=== PATIENT | female | born 1985 | race Caucasian/White ===

== ENCOUNTER 2024-06-08 05:14 | Inpatient (IN) | payer BC, MEDICAID ==
[~2024-06-08 05:14] MED LIST: Sodium Chloride 0.9% 10 ML Syringe FLUSH PRN
[2024-06-08] MEDS ORDERED: Lactated Ringers 1,000 ML IV SCH ×2 (05:30→21:45)
[2024-06-08] MEDS ORDERED: Oxytocin/0.9 % Sodium Chloride 30 UNIT/500 ML BAG IV SCH (05:45)
[2024-06-08] MEDS: Lactated Ringers 1,000 ML IV SCH (05:50)
[2024-06-08 05:54] LABS: BASOPHILS PERCENT AUTO 0.3 % (0.0-1.0); EOSINOPHILS ABSOLUTE AUTO 0.1 K/mm3 (0.0-0.4); EOSINOPHILS PERCENT AUTO 0.6 % (0.0-6.0); HEMATOCRIT 39.5 % (37.0-47.0); HEMOGLOBIN 13.3 gm/dl (12.0-16.0); IMMATURE GRAN ABSOLUTE AUTO 0.05 K/mm3 (0.00-0.05); IMMATURE GRAN PERCENT AUTO 0.5 % (0.0-0.4); LYMPHOCYTES ABSOLUTE AUTO 2.8 K/mm3 (1.0-4.8); LYMPHOCYTES PERCENT AUTO 29.9 % (24.0-44.0); MEAN CORPUSCULAR HEMOGLOBIN 27.5 pg (28.0-32.0); MEAN CORPUSCULAR HGB CONC 33.7 g/dl (32.0-36.0); MEAN CORPUSCULAR VOLUME 81.6 fl (83.0-99.0); MEAN PLATELET VOLUME 9.9 fl (9.4-12.3); MONOCYTES ABSOLUTE AUTO 0.6 K/mm3 (0.0-0.8); MONOCYTES PERCENT AUTO 6.5 % (0.0-8.0); NEUTROPHILS ABSOLUTE AUTO 5.8 K/mm3 (1.8-7.7); NEUTROPHILS PERCENT AUTO 62.2 % (41.0-71.0); PLATELET COUNT,PLT 317 K/mm3 (150-400); RED BLOOD CELL COUNT 4.84 M/mm3 (4.10-5.30); WHITE BLOOD CELL COUNT,WBC 9.33 K/mm3 (3.9-11.3)
[2024-06-08] MEDS ORDERED: Metoclopramide 10 MG/2 ML SDV IVPUSH ONE (06:30)
[2024-06-08] MEDS ORDERED: Citric Acid/Sodium Citrate Solution 30 ML Cup PO ONE (06:30)
[2024-06-08] MEDS ORDERED: ceFAZolin 2 GM in Sodium Chloride 0.9% 50 ML IV ONE (06:30)
[2024-06-08] MEDS ORDERED: Oxytocin/Lactated Ringers 30 UNIT/500 ML BAG IV SCH (07:00)
[2024-06-08] MEDS ORDERED: Morphine PF 10 MG/10 ML SDV ONE (07:02)
[2024-06-08] MEDS ORDERED: ceFAZolin 2 GM Vial ONE ×2 (07:03→20:03)
[2024-06-08] MEDS ORDERED: ePHEDrine 50 MG/ML SDV ONE (07:05)
[2024-06-08] MEDS ORDERED: Ketorolac 30 MG/ML SDV ONE (07:06)
[2024-06-08] MEDS: Citric Acid/Sodium Citrate Solution 30 ML Cup PO ONE (07:17)
[2024-06-08] MEDS: Metoclopramide 10 MG/2 ML SDV IVPUSH ONE (07:17)
[2024-06-08] MEDS ORDERED: Esmolol 100 MG/10 ML SDV ONE (07:56)
[2024-06-08] MEDS ORDERED: Lactated Ringers 1,000 ML IV ONE ×2 (08:15→19:15)
[2024-06-08] MEDS ORDERED: Ondansetron 4 MG/2 ML SDV IVPUSH PRN ×2 (08:51→21:37)
[2024-06-08] MEDS ORDERED: fentaNYL 100 MCG/2 ML SDV IVPUSH PRN ×2 (08:51→21:37)
[2024-06-08] MEDS ORDERED: diphenhydrAMINE 50 MG/ML SDV IVPUSH PRN ×2 (08:51→14:08)
[2024-06-08] MEDS: Bupivacaine 0.5% 30 ML SDV ONE (10:11)
[2024-06-08] MEDS ORDERED: ePHEDrine 50 MG/ML SDV IVPUSH PRN (14:08)
[2024-06-08] MEDS ORDERED: Naloxone 0.4 MG/ML SDV IVPUSH PRN (14:08)
[2024-06-08] MEDS: Acetaminophen/oxyCODONE 325-5 MG Tab PO PRN (14:21)
[2024-06-08] MEDS: Ketorolac 30 MG/ML SDV IVPUSH SCH (14:21)
[2024-06-08] MEDS: Dextrose 5%-Lactated Ringers 1,000 ML IV SCH (14:26)
[2024-06-08 15:09] LABS: BASOPHILS PERCENT AUTO 0.3 % (0.0-1.0); EOSINOPHILS PERCENT AUTO 0.3 % (0.0-6.0); HEMATOCRIT 27.1 % (37.0-47.0); IMMATURE GRAN ABSOLUTE AUTO 0.04 K/mm3 (0.00-0.05); IMMATURE GRAN PERCENT AUTO 0.4 % (0.0-0.4); LYMPHOCYTES ABSOLUTE AUTO 2.2 K/mm3 (1.0-4.8); LYMPHOCYTES PERCENT AUTO 22.2 % (24.0-44.0); MEAN CORPUSCULAR HEMOGLOBIN 27.7 pg (28.0-32.0); MEAN CORPUSCULAR HGB CONC 33.2 g/dl (32.0-36.0); MEAN CORPUSCULAR VOLUME 83.4 fl (83.0-99.0); MEAN PLATELET VOLUME 9.7 fl (9.4-12.3); MONOCYTES ABSOLUTE AUTO 0.5 K/mm3 (0.0-0.8); MONOCYTES PERCENT AUTO 5.2 % (0.0-8.0); NEUTROPHILS ABSOLUTE AUTO 6.9 K/mm3 (1.8-7.7); NEUTROPHILS PERCENT AUTO 71.6 % (41.0-71.0); RED BLOOD CELL COUNT 3.25 M/mm3 (4.10-5.30); WHITE BLOOD CELL COUNT,WBC 9.69 K/mm3 (3.9-11.3)
[2024-06-08 15:10] LABS: PLATELET COUNT,PLT 206 K/mm3 (150-400)
[2024-06-08] MEDS: fentaNYL 100 MCG/2 ML SDV IVPUSH ONE (15:44)
[2024-06-08] MEDS: Tranexamic Acid 1,000 MG/10 ML Vial IV ONE (16:09)
[2024-06-08 16:23] LABS: INR 1.22; PROTHROMBIN TIME 12.8 SECONDS (9.7-12.0)
[2024-06-08 16:24] LABS: PTT,PARTIAL THROMBOPLSTIN TIME 34.4 SECONDS (21.7-31.4)
[2024-06-08] MEDS: Sodium Chloride 0.9% 10 ML Syringe FLUSH SCH (16:50)
[2024-06-08] MEDS: ceFAZolin 2 GM in Sodium Chloride 0.9% 50 ML IV ONE (16:50)
[2024-06-08] MEDS: ceFAZolin 1 GM Vial IM ONE (16:50)
[2024-06-08] MEDS: Methylergonovine 0.2 MG/1 ML Amp IM PRN (17:31)
[2024-06-08] MEDS ORDERED: Rocuronium 50 MG/5 ML Vial ONE (19:10)
[2024-06-08] MEDS ORDERED: Propofol 200 MG/20 ML SDV ONE (19:10)
[2024-06-08] MEDS ORDERED: Dexamethasone 4 MG/ML 5 ML MDV ONE (19:10)
[2024-06-08] MEDS ORDERED: fentaNYL 100 MCG/2 ML SDV ONE (19:10)
[2024-06-08] MEDS ORDERED: Midazolam 1 MG/ML 2 ML SDV ONE (19:10)
[2024-06-08] MEDS ORDERED: Phenylephrine 1% 10 MG/ML SDV ONE (19:38)
[2024-06-08] MEDS ORDERED: Sodium Chloride 0.9% 100 ML ONE (19:38)
[2024-06-08] MEDS ORDERED: Sugammadex Sodium 200 MG/2 ML VIAL IV ONE (20:07)
[2024-06-08 21:12] LABS: HEMATOCRIT 19.2 % (37.0-47.0); MEAN CORPUSCULAR HGB CONC 32.8 g/dl (32.0-36.0); MEAN CORPUSCULAR VOLUME 85.3 fl (83.0-99.0); MEAN PLATELET VOLUME 9.9 fl (9.4-12.3); PLATELET COUNT,PLT 99 K/mm3 (150-400); RED BLOOD CELL COUNT 2.25 M/mm3 (4.10-5.30); WHITE BLOOD CELL COUNT,WBC 9.47 K/mm3 (3.9-11.3)
[2024-06-08 21:24] LABS: HEMOGLOBIN 6.3 gm/dl (12.0-16.0)
[2024-06-08] MEDS ORDERED: HYDROmorphone 0.5 MG/0.5 ML Syringe IVPUSH PRN (21:37)
[2024-06-08] MEDS ORDERED: Sodium Chloride 0.9% 10 ML Syringe FLUSH PRN (21:37)
[2024-06-09] MEDS: Simethicone 80 MG Tab.Chew PO PRN (04:31)
[2024-06-09 06:33] LABS: BASOPHILS PERCENT AUTO 0.2 % (0.0-1.0); HEMATOCRIT 21.9 % (37.0-47.0); IMMATURE GRAN ABSOLUTE AUTO 0.06 K/mm3 (0.00-0.05); IMMATURE GRAN PERCENT AUTO 0.6 % (0.0-0.4); LYMPHOCYTES ABSOLUTE AUTO 1.6 K/mm3 (1.0-4.8); LYMPHOCYTES PERCENT AUTO 17.2 % (24.0-44.0); MEAN CORPUSCULAR HEMOGLOBIN 27.7 pg (28.0-32.0); MEAN CORPUSCULAR HGB CONC 33.3 g/dl (32.0-36.0); MEAN PLATELET VOLUME 10.7 fl (9.4-12.3); MONOCYTES ABSOLUTE AUTO 0.5 K/mm3 (0.0-0.8); MONOCYTES PERCENT AUTO 4.7 % (0.0-8.0); NEUTROPHILS ABSOLUTE AUTO 7.4 K/mm3 (1.8-7.7); NEUTROPHILS PERCENT AUTO 77.3 % (41.0-71.0); NRBC ABSOLUTE 0.02 (0.00-0.02); NRBC PERCENT 0.2 % (0.0-0.2); PLATELET COUNT,PLT 105 K/mm3 (150-400); RED BLOOD CELL COUNT 2.64 M/mm3 (4.10-5.30); WHITE BLOOD CELL COUNT,WBC 9.53 K/mm3 (3.9-11.3)
[2024-06-09 06:49] LABS: HEMOGLOBIN 7.3 gm/dl (12.0-16.0)
[2024-06-09] MEDS: Ibuprofen 600 MG Tab PO SCH (09:08)
[2024-06-09] MEDS: Sodium Chloride 0.9% 10 ML Syringe FLUSH SCH (11:10)
[2024-06-10] MEDS: Acetaminophen/oxyCODONE 325-5 MG Tab PO PRN (01:08)
[2024-06-10] MEDS: Ibuprofen 600 MG Tab PO SCH (06:05)
[2024-06-10 06:14] LABS: HEMATOCRIT 20.6 % (37.0-47.0); MEAN CORPUSCULAR HEMOGLOBIN 28.9 pg (28.0-32.0); MEAN CORPUSCULAR HGB CONC 33.5 g/dl (32.0-36.0); MEAN PLATELET VOLUME 10.1 fl (9.4-12.3); PLATELET COUNT,PLT 145 K/mm3 (150-400); RED BLOOD CELL COUNT 2.39 M/mm3 (4.10-5.30); WHITE BLOOD CELL COUNT,WBC 10.45 K/mm3 (3.9-11.3)
[2024-06-10 06:18] LABS: HEMOGLOBIN 6.9 gm/dl (12.0-16.0); MEAN CORPUSCULAR VOLUME 86.2 fl (83.0-99.0)
[2024-06-10] MEDS: Sodium Chloride 0.9% 250 ML IV SCH (09:16)
[2024-06-11 05:41] LABS: HEMATOCRIT 22.1 % (37.0-47.0); MEAN CORPUSCULAR HEMOGLOBIN 28.7 pg (28.0-32.0); MEAN CORPUSCULAR HGB CONC 32.6 g/dl (32.0-36.0); MEAN PLATELET VOLUME 10.1 fl (9.4-12.3); NRBC ABSOLUTE 0.24 (0.00-0.02); PLATELET COUNT,PLT 159 K/mm3 (150-400); RED BLOOD CELL COUNT 2.51 M/mm3 (4.10-5.30); WHITE BLOOD CELL COUNT,WBC 7.97 K/mm3 (3.9-11.3)
[2024-06-11 05:48] LABS: HEMOGLOBIN 7.2 gm/dl (12.0-16.0)
[2024-06-11] MEDS: Measles, Mumps & Rubella Vaccine 0.5 ML SDV SUBCUT ONE (11:07)
== END 2024-06-11 11:37 | disposition home or self-care (01) | DRG 787 ==
LOC: JD.OB 05:14
PROVIDERS: ADMIT Obstetrics & Gynecology; ATTEND Obstetrics & Gynecology
PROC: 10D17ZZ Extraction of Products of Conception, Retained, Via Natural or Artificial Opening (ICD-10-PCS; 2024-06-08)
PROC: 0W3R7ZZ Control Bleeding in Genitourinary Tract, Via Natural or Artificial Opening (ICD-10-PCS; 2024-06-08)
PROC: 0UC97ZZ Extirpation of Matter from Uterus, Via Natural or Artificial Opening (ICD-10-PCS; 2024-06-08)
PROC: 3E0R3BZ Introduction of Anesthetic Agent into Spinal Canal, Percutaneous Approach (ICD-10-PCS; 2024-06-08)
PROC: 00HU33Z Insertion of Infusion Device into Spinal Canal, Percutaneous Approach (ICD-10-PCS; 2024-06-08)
PROC: 30233N1 Transfusion of Nonautologous Red Blood Cells into Peripheral Vein, Percutaneous Approach (ICD-10-PCS; 2024-06-08)
PROC: 10D00Z1 Extraction of Products of Conception, Low, Open Approach (ICD-10-PCS; principal; 2024-06-08 07:30)
PROC: 30233N1 Transfusion of Nonautologous Red Blood Cells into Peripheral Vein, Percutaneous Approach (ICD-10-PCS; 2024-06-10)
DX: O34.211 Maternal care for low transverse scar from previous cesarean delivery (principal); D62 Acute posthemorrhagic anemia; O72.2 Delayed and secondary postpartum hemorrhage; O26.53 Maternal hypotension syndrome, third trimester; O75.4 Other complications of obstetric surgery and procedures; R00.0 Tachycardia, unspecified; O90.81 Anemia of the puerperium; O24.429 Gestational diabetes mellitus in childbirth, unspecified control; Z3A.37 37 weeks gestation of pregnancy; Z37.0 Single live birth
CPT/HCPCS: 00940; 01961; 36415; 36430; 59025; 76857; 76857-26; 82947; 85025; 85027; 85384; 85610; 85730; 86592; 86850; 86900; 86901; 90471; 90707; A9270-GY; J0665; J0690; J1100; J1885; J2210; J2250; J2274; J2371; J2704; J2765; J3010; J3490; J7050; J7120; J7121; P9016